=== PATIENT | female | born 1995 | race Caucasian/White ===

== ENCOUNTER 2023-01-29 09:25 | Emergency (ER) | payer OTHER, MEDICAID, SELFPAY ==
[2023-01-29 09:25] VITALS: BP 108/66; PULSE 68; RESP 18; TEMP 36.8; O2SAT 100; BMI 28.3
--- NOTE | 2023-01-29 09:28 | EXP.UTC ---
Discharge Plan Disposition Patient Disposition: Home, Self-Care Condition: Good Prescriptions Prescriptions: New phenazopyridine [Pyridium] 200 mg tablet 200 mg PO Q8H 2 Days Qty: 6 0RF sulfamethoxazole-trimethoprim [Bactrim DS] 800-160 mg Tablet 1 tab PO BID Qty: 14 0RF ondansetron 4 mg Tablet,Disintegrating 4 mg PO Q8H PRN (Reason: Nausea) Qty: 12 0RF Referrals Follow up/Referrals: Modesta Reddy MD [Primary Care Provider] - See instructions Activity Restrictions/Add. Instructions Additional Instructions/Restrictions: Drink plenty of fluids. Take tylenol or ibuprofen for pain or fever. Take the medications as directed. Follow up with your regular doctor. GO TO THE ER FOR ANY WORSENING SYMPTOMS The pyridium will make your urine turn orange, this is an expected side effect. It will stain your clothes if it comes into contact with them. We will culture the urine. That will tell what bacteria is causing your infection and which antibiotics will treat it best. Sometimes the first antibiotic we prescribe turns out to not work against different bacteria. So, make sure you follow up within 3 days if you are not getting better. Clinical Impressions Clinical Impression: UTI (urinary tract infection) Instructions Patient Instructions: DI for Urinary Tract Infection (UTI), Phenazopyridine Discharge ED Provider: Danilo Anderson [facility] General Stated complaint: burn sensation when urinates Time Seen by Provider: 01/29/23 09:28 History of Present Illness Provider Complaint: She states that for the past 2 days she has had low back pain, dysuria, and urinary frequency. Related Data Previous Rx's Medication Instructions Recorded ondansetron 4 mg disintegrating 4 mg PO Q8H PRN Nausea #12 tabs 01/29/23 tablet phenazopyridine 200 mg tablet 200 mg PO Q8H 2 days #6 tabs 01/29/23 (Pyridium) sulfamethoxazole 800 1 tab PO BID #14 tabs 01/29/23 mg-trimethoprim 160 mg tablet (Bactrim DS) Allergies Allergy/AdvReac Type Severity Reaction Status Date / Time No Known Allergies Allergy Verified 01/29/23 09:43 [facility] Disclaimer: The information contained in this section may have been updated after the patient was seen, as this information can be updated by other users. Social History Smoking Status: Never smoker alcohol intake: never current occupational status: employed Travel in the last 8 weeks: None ROS Obtained: Yes All systems reviewed & no additional complaints except as documented Constitutional Constitutional: Reports system reviewed and no additional complaints, except as documented, Denies chills and Denies fever(s) Eyes Eyes: Denies eye discharge ENT Ears, Nose, Mouth, and Throat: Denies dysphagia, Denies sore throat and Denies throat swelling Cardiovascular Cardiovascular: Denies chest pain and Denies dyspnea Respiratory Respiratory: Denies chest congestion, Denies cough and Denies dyspnea Gastrointestinal Gastrointestingal: Denies abdominal pain, constipation, diarrhea, dysphagia, nausea or vomiting Genitourinary Female Genitourinary: Reports as per HPI, Reports dysuria, Reports urinary frequency, Denies urinary incontinence, Reports urinary hesitancy and Reports urinary urgency Musculoskeletal Musculoskeletal: Denies arthralgias and Reports back pain Integumentary/Breasts Skin/Breast: Denies rash Neurologic Neurologic: Denies paresthesias Allergic/Immunologic Allergic/Immunologic: Denies throat swelling Physical Exam General General appearance: alert and in no apparent distress Head Head exam: atraumatic and normocephalic Eye Eye exam: Present normal appearance, PERRL and EOMI ENT ENT exam: Present normal exam, mucous membranes moist, TM's normal bilaterally and normal external ear exam Neck Neck exam: Present normal inspection, full ROM and trachea midline; Absent tenderness, meningismus o
[2023-01-29 10:09] VITALS: BP 108/66; PULSE 68; RESP 18; TEMP 36.8; O2SAT 100
[2023-01-29 11:10] LABS: Appearance,Urine CLEAR (Clear); Blood, Urine Negative (Negative); Color,Urine ORANGE (Yellow); Glucose,Urine (UA) TRACE (Negative); Ketones,Urine Negative (Negative); Leukocyte Esterase,Urine TRACE (Negative); Microscopic, Urine URINE MICROSCOPIC (MICROSCOPIC); Nitrate,Urine POSITIVE (Negative); Protein,Urine 1+ (Negative)
[2023-01-29 11:15] LABS: Bilirubin,Urine 1+ (Negative)
[2023-01-29 11:27] LABS: RBC,Urine Occasional #/hpf (0-3)
[2023-01-29 11:28] LABS: Bacteria,Urine 1+ /lpf
== END 2023-01-29 10:10 | disposition home or self-care (01) ==
PROVIDERS: Emergency Provider Nurse Practitioner Family; PCP Family Medicine
DX: N39.0 Urinary tract infection, site not specified (principal); M54.59 Other low back pain; B96.29 Other Escherichia coli [E. coli] as the cause of diseases classified elsewhere
CPT/HCPCS: 81001; 87086; 87088; 87186; 99204; 99212; G0463

== ENCOUNTER 2023-03-19 10:53 | Emergency (ER) | payer OTHER, MEDICAID, SELFPAY ==
[2023-03-19 10:54] VITALS: BP 112/78; PULSE 75; RESP 19; TEMP 36.6; O2SAT 100; BMI 26.2
--- NOTE | 2023-03-19 11:12 | EXP.UTC ---
Discharge Plan Disposition Patient Disposition: Home, Self-Care Condition: Good Prescriptions Prescriptions: New cephalexin [cephalexin] 500 mg tablet 500 mg PO BID 7 Days Qty: 14 0RF No Action phenazopyridine [Pyridium] 200 mg tablet 200 mg PO Q8H 2 Days Qty: 6 0RF sulfamethoxazole-trimethoprim [Bactrim DS] 800-160 mg Tablet 1 tab PO BID Qty: 14 0RF ondansetron 4 mg Tablet,Disintegrating 4 mg PO Q8H PRN (Reason: Nausea) Qty: 12 0RF Referrals Follow up/Referrals: Provider,Referral, MD [Primary Care Provider] - See instructions Activity Restrictions/Add. Instructions Additional Instructions/Restrictions: Increase fluids, water and not soda or tea. Can drink cranberry juice or cranberry extract. Wipe front to back Wear cotton underwear Empty bladder after intercourse Start antibiotics immediately and make sure you take the full course although you may start to see improvement over the next 48 hours. You can eat yogurt or take probiotics to decrease diarrhea or yeast infection caused by the antibiotic Be sure to follow-up anytime for new or worsening symptoms in 48 hours for wound urine culture results be sure to let you PCP no recent urine for culture so they can request records and ensure that you have appropriate antibiotic if you are not getting better or getting worse. If symptoms worsen or do not improve return or be seen in the ER. Follow-up with primary care this week. Clinical Impressions Clinical Impression: UTI (urinary tract infection) Qualifiers: Urinary tract infection type: acute cystitis Hematuria presence: with hematuria Qualified Code(s): N30.01 - Acute cystitis with hematuria Instructions Patient Instructions: DI for Urinary Tract Infection (UTI) Discharge ED Provider: Keesha ([facility] [facility] HPI General Stated complaint: possible UTI Mode of Arrival: Ambulatory Source of Information: Patient Limitations: No Limitations Time Seen by Provider: 03/19/23 11:13 Description of Symptoms (Recalled from Triage Doc. by RN): Patient reports uti symptoms. Complaint of frequent urination, dark urine and buring with urination since this morning. HEENT Symptoms (Recalled from RN notes): No Resp Symptoms (Recalled from RN notes): No Skin Symptoms (Recalled from RN notes): No MS Symptoms (Recalled from RN notes): No Functional Status (Recalled from RN notes): wnl History of Present Illness Provider Complaint: 27 yr old female presents with c/o frequent urination, dark urine and burning with urination since this morning. Related Data Previous Rx's Medication Instructions Recorded ondansetron 4 mg disintegrating 4 mg PO Q8H PRN Nausea #12 tabs 01/29/23 tablet phenazopyridine 200 mg tablet 200 mg PO Q8H 2 days #6 tabs 01/29/23 (Pyridium) sulfamethoxazole 800 1 tab PO BID #14 tabs 01/29/23 mg-trimethoprim 160 mg tablet (Bactrim DS) cephalexin 500 mg tablet 500 mg PO BID 7 days #14 tabs 03/19/23 Allergies Allergy/AdvReac Type Severity Reaction Status Date / Time No Known Allergies Allergy Verified 01/29/23 09:43 Worker's Comp Is this a Worker's Comp case?: No [facility]SH [facility] Disclaimer: The information contained in this section may have been updated after the patient was seen, as this information can be updated by other users. Social History , [employer]) Smoking Status: Never smoker alcohol intake: never current occupational status: employed Travel in the last 8 weeks: None ROS Obtained: Yes All systems reviewed & no additional complaints except as documented Constitutional Constitutional: Reports system reviewed and no additional complaints, except as documented Eyes Eyes: Reports system reviewed and no additional complaints, except as documented ENT Ears, Nose, Mouth, and Throat: Reports system reviewed and no additional complaints, except as documented Cardiovascular Cardiovascular: Reports system reviewed
[2023-03-19 11:13] LABS: Microscopic, Urine URINE MICROSCOPIC (MICROSCOPIC)
[2023-03-19 11:21] LABS: Appearance,Urine CLEAR (Clear); Bilirubin,Urine Negative (Negative); Blood, Urine 2+ (Negative); Color,Urine YELLOW (Yellow); Glucose,Urine (UA) Negative (Negative); Ketones,Urine Negative (Negative); Leukocyte Esterase,Urine 3+ (Negative); Nitrate,Urine POSITIVE (Negative); PH,Urine 7.5 (5.0-8.5); Protein,Urine TRACE (Negative); Specific Gravity, Urine 1.015 (1.005-1.030); Urobilinogen,Urine 0.2 EU/dl (0.2)
[2023-03-19 12:02] VITALS: BP 112/78; PULSE 75; RESP 19; TEMP 36.6; O2SAT 100
[2023-03-19 12:26] LABS: Bacteria,Urine Trace /lpf
== END 2023-03-19 12:02 | disposition home or self-care (01) ==
PROVIDERS: Emergency Provider Nurse Practitioner Family
DX: N39.0 Urinary tract infection, site not specified (principal); R31.9 Hematuria, unspecified
CPT/HCPCS: 81001; 87086; 87088; 87186; 99212; 99214; G0463

== ENCOUNTER 2024-04-24 10:48 | Outpatient (CLI) | payer MEDICAID, SELFPAY | END 2024-04-24 23:59 | disposition home or self-care (01) | LOC: LAB.DROPOF 04-25 10:48 | PROVIDERS: PCP Student in an Organized Health Care Education/Training Program; Visit Provider Student in an Organized Health Care Education/Training Program | DX: R39.9 Unspecified symptoms and signs involving the genitourinary system (principal) | CPT/HCPCS: 87086; 87088; 87186 ==

== ENCOUNTER 2024-09-21 11:23 | Outpatient (CLI) | payer MEDICAID, SELFPAY | END 2024-09-21 23:59 | disposition home or self-care (01) | LOC: LAB.DROPOF 09-24 11:29 | PROVIDERS: PCP Pediatrics; Visit Provider Student in an Organized Health Care Education/Training Program | DX: R30.0 Dysuria (principal) | CPT/HCPCS: 87086; 87088; 87186 ==

== ENCOUNTER 2025-03-28 14:57 | Emergency (ER) | payer MEDICAID, SELFPAY ==
--- OUTSIDE RECORDS SUMMARY | 2025-02-05 07:56 | XMS_ITS | Encounter Summary ---
[facility] Organization [facility] Address [address] [place] [address] Care Team Providers Care Gauge And Weigh Machine Adjuster Name Role Phone Opal Stewart MD Primary Care Provider [phone] Encounter Details Date Type Department Care Team (Latest Contact Info) Description 02/05/2025 7:56 AM EDT - 02/05/2025 11:59 PM EDT Hospital Encounter [facility] OUTPATIENT PHYSICAL THERAPY [address] [place] [address] Fatoumata Philippe, PT Dyspareunia, female (Primary Dx) Discharge Disposition: Home or Self Care Social History Tobacco Use Types Packs/Day Years Used Date Smoking Tobacco: Never Smokeless Tobacco: Never Alcohol Use Standard Drinks/Week Comments No 0 (1 standard drink = 0.6 oz pur e alcohol) AUDIT-C Answer Date Recorded Q1: How often do you have a drink containing alcohol? Never 09/19/2021 Q2: How many drinks containi ng alcohol do you have on a typical day when you are drinking? Patient does not drink Q3: How often do you have si x or more drinks on one occasion? Never 09/19/2021 PHQ-2 Answer Date Recorded PHQ-2 Score 0 05/14/2018 [place] Depression Scale Answer Date Recorded Retired [place] Depression Score 6 11/04/2021 Retired EPD Scale: Thought of Harming Self Unrec ognized value 11/04/2021 Comments Unknown Sex and Gender Information Value Date Recorded Sex Assigned at Female 04/06/2020 9:44 PM EDT Legal Sex Female 11:12 AM EDT Gender Identity Female 04/06/2020 9:44 PM EDT Sexual Orientation Straight 04/06/2020 9: 44 PM EDT Occupation Industry Job Start Date Job End Date Student Not on file Not on file Not on file documented as of this encounter Progress Notes * Fatoumata Philippe, PT - 02/05/2025 8:00 AM EDT PT Progress Note [facility] Patient: Yolette Parks : 1995 Diagnosis/ICD-10 Code: ICD-10-CM ICD-9-CM 1. Dyspareunia, female N94.10 625.0 Referring practitioner: Opal Stewart MD Today's Date: 02/05/2025 Subjective: Patient reports: pain has shifted to L and more midline, onto blue dilator - still having some pain, will likely remain this week Pain: 0 Clinical Progress: improved Home Program Compliance: Yes Treatment has included: therapeutic exercise, neuromuscular re-education, manual therapy, and therapeutic activity Subjective See Exercise, Manual, and Modality Logs for complete treatment. Functional Outcome Measure: APFQ Bladder 245 Bowel 134 Prolapse 0/15 Sexual 01/21 Verbal consent obtained for internal pelvic exam/treatment with declined need for second person in room. Pt tolerated manual treatment with minimal to no discomfort that decreased with MFR and TPR. Pt is compliant with HEP and stretching was reviewed today. Will continue manual and progress as toleratedto decrease symptoms. Pain Only minimal pain w intercourse, feels like symptoms have shifted to the L Bladder function: No bladder issues noted Bowel function: No bowel issues noted Sexual activity Bloating following intercourse has been fine Deeper penetration has improved pain / No pain following dilator or sex now No insertional pain Transfers [id number] - PT Therapeutic Activity Minutes: 10 Objective Appropriate kegel and lengthening Cervix seems to slightly descended and deviated towards the L With kegel, cervix migrated slightly upwards in canal No points of tenderness w internal exam today No restrictions around apex of canal compared to previous sessions Assessment & Plan Assessment Assessment details: 30 day reassessment complete w goals updated as appropriate. Pt remains warranted for continued skilled PT to address remaining pain w intercourse. Progressed dilator training. Recommend implementing prolapse related care to address slight descent of cervix upon next visit (follow up in about 2 weeks). Plan Plan details: POP exercises Progress toward previous goals: Partially Met Recommendations: Continue as planned Timeframe: 3 months Therapy Charges for Today Code Description Service Date Service Provider Modifiers Qty [id number] HC PT THERAPEUTIC ACT EA 15 MIN 02/05/2025 Fatoumata Philippe, PT GP 1 [id number] HC PT MANUAL THERAPY EA 15 MIN 02/05/2025 Fatoumata Philippe, PT GP 1 PT Signature: Fatoumata Philippe PT, DPT [place] License #: [id number] Based upon review of the patient's progress and continued therapy plan, it is my medical opinion that Yolette Parks should continue physical therapy treatment at [facility] OP PT. Signature: Opal Stewart MD documented in this encounter Plan of Treatment Upcoming Encounters Date Type Department Care Team (Late st Contact Info) Description 11/27/2025 1:00 PM EDT Office Visit [facility] OBGYN [address] [place] [address] Opal Stewart MD [address] [place] [address] [place] [phone] documented as of this encounter Visit Diagnoses Diagnosis Dyspareunia, female- Primary documented in this encounter Care Teams Gauge And Weigh Machine Adjuster Relationship Specialty Start Date End Date Opal Stewart MD [address] [place] [address] PCP - General Obstetrics and Gynecology 11/14/23 documented as of this encounter
[2025-03-28 15:17] VITALS: BP 137/80; PULSE 80; RESP 20; TEMP 36.7; O2SAT 98; BMI 23.6
[2025-03-28] MEDS: LIDOCAINE 1% W/EPI 1:100,000 20ML VIAL 20 ML SQ (15:23)
--- NOTE | 2025-03-28 15:44 | ED_ITS ---
<Statement entered by Hernan Ruffin MD - 03/29/25 02:20> I was consulted by the [facility], and we discussed the complexity of the problems being addressed. I approve the treatment and management plan for this patient's care in the emergency department, thus performing a substantive portion of the medical decision making. Hernan Ruffin MD Discharge Plan Disposition Patient Disposition: Home, Self-Care Prescriptions Prescriptions: No Action nitrofurantoin monohyd/m-cryst 100 mg capsule 100 mg PO Q12H 7 Days Qty: 14 0RF Rx Instructions: must administer with a meal/food Referrals Follow up/Referrals: Elver Marcos MD [Primary Care Provider, Medical] - See instructions Activity Restrictions/Add. Instructions Additional Instructions/Restrictions: Have sutures removed in 10 days. Keep clean and dry. If any signs or symptoms of infection please return to your PCP. Clinical Impressions Clinical Impression: Laceration Instructions Patient Instructions: DI for Laceration Repair Print Language Print Language: Greek Discharge ED Provider: Hernan Ruffin General Adult HPI General Chief complaint: Wound/Laceration Stated complaint: AO 03/28/25 1400, cut finger on right hand Time Seen by Provider: 03/28/25 15:03 Mode of Arrival: Ambulatory Source of Information: Patient Description of Symptoms (Recalled from ER Triage Doc. by RN): pt was cooking dinner at home and finger on new slicer, tetnus is up to date, denies any other health problems, edges are approxiamate History of Present Illness HPI narrative: 29-year-old female presents to the ED today for complaint of laceration to right middle finger. She was cutting food and sliced off the part of the middle finger. She says she is up-to-date on tetanus. She is controlled the bleeding. She has no other complaints Related Data Previous Rx's ?Medication ?Instructions ?Recorded nitrofurantoin 100 mg PO Q12H 7 days #14 ca ps 09/21/24 monohydrate/macrocrystals 100 mg capsule Allergies Allergy/AdvReac Type Severity Reaction Status Date / Time No Known Allergies Allergy Verified 03/28/25 15:20 PFS PFS Disclaimer: The information contained in this section may have been updated after the patient was seen, as this information can be updated by other users. Social History Smoking Status: Never smoker alcohol intake: never current occupational status: employed Travel in the last 8 weeks?: None Have you lived/traveled outside US in past 30 days?: No Contact w/someone who lives/traveled outside US past 30 days?: No Exposure to someone with infectious disease in past 14 days?: No Do you have a fever (greater than 100.4 F or 38 C)?: No Have you tested positive for COVID-19?: No Exposed to someone with COVID-19 in past 14 days?: No Do you have a sore throat?: No Do you have a cough?: No Do you have any weakness?: No Do you have any diarrhea?: No Are you experiencing any unusual bleeding?: No Do you have any muscle aches/pain?: No Do you have any abdominal pain?: No Are you experiencing loss of taste or smell?: No Other Medical History Have you received the Pneumonia Vaccine: No ROS Obtained: Yes Systems reviewed as appropriate & no additional complaints except as documented Constitutional Constitutional: Reports as per HPI Physical Exam General General appearance: alert and in no apparent distress Head Head exam: normocephalic Eye Eye exam: Present PERRL and EOMI ENT ENT exam: Present normal oropharynx and mucous membranes moist Neck Neck exam: Present full ROM and trachea midline Respiratory Respiratory exam: Present normal lung sounds bilaterally Cardiovascular Cardiovascular exam: Present regular rate and normal rhythm Extremities Exam Extremities exam: Present full ROM and normal capillary refill Neurological Exam Neurological exam: Present alert and oriented X3 Skin Skin exam: Present warm, dry and other (Small laceration to right middle finger, this slicer took a small chunk out of her finger with flap) Medical Decision Making Medical Records Screening: Per USPSTF and CDC recommendations, given the prevalence of disease in our region, it is our hospital?s policy to screen for HIV and viral Hepatitis for all patients aged 18 and over and those with ongoing risk factors. Kevin Inquiry Pt receiving controlled substance: No Kevin was queried for this patient: No Vital Signs: 03/28/25 15:17 03/28/25 16:02 Temperature 98.1 F 98.0 F Temperature Source Oral Oral Pulse Rate 76 Pulse Rate [Left Radial] 80 Respiratory Rate 20 18 Blood Pressure 126/78 Blood Pressure [Right Arm] 137/80 Blood Pressure Mean [Right Arm] 99 Blood Pressure Source Automatic Cuff Blood Pressure Position Sitting 02 Sat by Pulse Oximetry 98 Oxygen Delivery Method Room Air Room Air Orders (Tests/Meds): ED MEDICATIONS Discontinued Medications Generic Name Dose Route Start Last Admin Trade Name Carisa PRN Reason Stop Dose Admin Lidocaine/Epinephrine 20 ml 03/28/25 15:21 03/28/25 15:23 Lidocaine 1% W/Epi 1:100,000 20ml Vial SQ 03/28/25 15:22 20 ml ONCE ONE Administration Medical Decision Narrative: 29-year-old female presents to the ED for complaint of laceration to right middle finger. She is up-to-date on tetanus. She sliced a piece of her middle finger, flap is apparent. Tried to keep the flap attached with 2 sutures. It was difficult to keep the flap attached. Patient given instructions to care for this wound. Patient needs to have sutures removed in 10 days. Patient safe for discharge home. Procedures Laceration Laceration 1: Site: finger (Right middle finger) Side (If applicable): right Size (cm): 2 Description: flap Depth: simple, single layer Local Anesthetic: lidocaine 1% Amount of anesthesia used (mL): 3 Skin layer closed with: nylon Size (cm): 4-0 (2) Number of sutures: 2 Technique: simple, interrupted Critical Care Critical Care Time Critical Care Time: No
--- OUTSIDE RECORDS SUMMARY | 2025-03-28 15:44 | XMS_ITS | Encounter Summary ---
[facility] Address [address] [place] [address] Care Team Providers Care Heel Stainer Name Role Phone Opal Stewart MD Primary Care Provider [phone] Encounter Details Date Type Department Care Team (Latest Contact Info) Description 02/05/2025 Travel Social History Tobacco Use Types Packs/Day Years [...] Answer Date Recorded PHQ-2 Score 0 05/14/2018 [place] Depression Scale Answer Date Recorded Retired [place] Depression Score 6 11/04/2021 Retired EPD Scale: [...] on file documented as of this encounter Plan of Treatment Upcoming Encounters Date Type Department Care Team (Late st Contact Info) Description 11/27/2025 1:00 PM EDT Office Visit [facility] OBGYN [address] [place] [address] Opal Stewart MD [address] [facility] [address] [place] [phone] documented as of this encounter Visit Diagnoses Not on filedocumented in this encounter Care Teams Heel Stainer Relationship Specialty Start Date End Date Opal Stewart MD [address] [place] [address] PCP - General Obstetrics and Gynecology 11/14/23 documented as of this encounter
--- OUTSIDE RECORDS SUMMARY | 2025-03-28 15:45 | XMS_ITS | Clinical Summary ---
Author Organization [facility] Address [address] [place] [address] Care Team Providers Care Manufacturing Inspector Name Role Phone Opal Stewart MD Primary Care Provider Allergies No known active allergies Medications No known medications Active Problems No known active problems Resolved Problems Problem Noted Date Diagnosed Date Resolved Date Normal labor 09/19/2021 11/04/2021 History of gestat ional hypertension 05/20/2021 11/04/2021 Overview (08/12/2021): 28 wk 24h urine 255mg 03/04/2021 11/04/2021 Overview (08/12/2021): Prev term 6#6oz, elevated BPs after delivery, no mag. Start baby asa 12 wks. EFW 32 wks 59%ile Normal labor 04/29/2020 06/11/2020 Encounters Date Type Department Care Team Description 02/05/2025 7:56 AM EDT - 02/05/2025 11:59 PM EDT Hospital Encounter [facility] [address] [place] [id number] Fatoumata Philippe, PT Dyspareunia, female (Primary Dx) Discharge Disposition: Home or Self Care 02/05/2025 Travel 01/15/2025 8:38 AM EDT - 01/15/2025 11:59 PM EDT Hospital Encounter [facility] [address] [place] [address] Fatoumata Philippe, PT Dyspareunia, female (Primary Dx) Discharge Disposition: Home or Self Care 01/15/2025 Travel 01/02/2025 1:00 PM EDT - 01/02/2025 11:59 PM EDT Hospital Encounter [facility] [address] [place] [address] Fatoumata Philippe, PT Dyspareunia, female (Primary Dx) Discharge Disposition: Home or Self Care 01/02/2025 Travel from Last 3 Months Immunizations Immunization Administration Dates Next Due DTaP 10/23/2001, 9,04/15/1998,02/25,1997 HPV Quadrivalent 01/29/2009,03/29/2008, 8 Hep A, 2 Dose 02/17/2018 Hepatitis A 09/06/2018 Hepatitis B Adult/Adolescent IM 04/15/1998,12/24,1997 HiB 01/14/1999, 8,02/25/1998,12/24 IPV 10/23/2001, 9,02/25/1998,12/24 MMR 10/23/2001,01/14/1999 Meningococcal Conjugate 01/31/2012 Pneumococcal Conjugate 13-Va lent (PCV13) 10/21/2000 Tdap 01/29/2009 Varicella 01/29/2011,10/21/2000 Family History Medical History Relation Name Comments Diabetes Maternal Grandfather Alex barahona Hyperlipidemia Maternal Grandfather Alex barahona Breast cancer Maternal Grandmother Wendie barahona Cancer Maternal Grandmother Wendie barahona Hyperlipidemia Maternal Grandmother Wendie barahona Hypertension Mother Elly andrea Breast cancer Other Family History Relation Name Status Comments Maternal Grandfather Alex barahona Maternal Grandmother Wendie barahona Mother Elly andrea Other Family History Social History Tobacco Use Types Packs/Day Years [...] Answer Date Recorded PHQ-2 Score 0 05/14/2018 [employer] Depression Scale Answer Date Recorded Retired [employer] Depression Score 6 11/04/2021 Retired EPD Scale: [...] file Not on file Not on file Last Filed Vital Signs Vital Sign Reading Time Taken Comments Blood Pressure 112/78 11/21/2024 1:14 PM EDT Pulse 83 09/21/2021 8:00 AM EDT Temperature 36.8 C (98.3 F) 09/21/2021 8:00 AM EDT Respiratory Rate 16 09/21/2021 8:00 AM EDT Oxygen Saturation 98% 09/19/2021 1:06 AM EDT Inhaled Oxygen Concentration - - Weight 56.7 kg (125 lb) 11/21/2024 1:14 PM EDT Height 156.2 cm (5' 1.5 ) 11/21/2024 1:14 PM EDT Body Mass Index 23.24 11/21/2024 1:14 PM EDT Plan of Treatment Upcoming Encounters Date Type Department Care Team (Late st Contact Info) Description 11/27/2025 1:00 PM EDT Office Visit [facility] [address] [place] [address] Opal Stewart MD [address] [address] Health Maintenance Due Date Last Done Comments TDAP/TD VACCINES (2 - Td or Tdap) 01/29/2019 009 ANNUAL PHYSICAL 02/24/2020 02/23/2019 INFLUENZA VACCINE 02/01/2025 PT PLAN OF CARE 04/02/2025 01/02/2025 Annual Gynecologic Pelvic an d Breast Exam 11/22/2025 11/21/2024 PAP SMEAR 11/15/2026 11/16/2023, 11/01, 11/04/2021, Additional history exists Pneumococcal Vaccine 0-49 Completed 10/21/2000 HEPATITIS C SCREENING Completed 03/04/2021, 020 CHLAMYDIA SCREENING Discontinued 11/16/2023, 11/10/2022, 03/04/2021, Additional history exists Procedures Procedure Name Priority Date/Time Associated Diagnosis Comments LIQUID-BASED PAP SMEAR WITH HPV GENOTYPING IF ASCUS, [facility] (FRANCINE,COR,MAD) Routine 11/16/2023 10:24 AM EDT Women's annual routine gynecological examination OB PANEL WITH HIV AND RPR Routine 03/04/2021 12:00 AM EDT 9 weeks gestation of from Last 3 Months or Most Recently Relevant to Health Maintenance Results * LIQUID-BASED PAP SMEAR WITH HPV GENOTYPING IF ASCUS (FRANCINE,COR,MAD) (11/16/2023 10:24 AM EDT) Pathologist [facility] Reference Lab Report [facility] [address] [place] [address] or [phone] Finn Moe M.D., [place] PATIENT NAME LABORATORY NO. 65REANNA BAIG [id number] AGE SEX SSN CLIENT REF # [facility] ([place]) 26 1995 F [id number] Lisa RUELAS REQUESTING Bryanna [place] [address] OPAL STEWART DATE COLLECTED DATE RECEIVED DATE REPORTED 11/16/2023 11/16/2023 11/21/2023 ThinPrep Pap with Cytyc Imaging DIAGNOSIS: Negative for intraepithelial lesion or malignancy Multiple factors can influence accuracy of Pap tests; therefore, screening at regular intervals is necessary for early cancer detection. COMMENT: Benign cellular changes associated with inflammation are present. SPECIMEN ADEQUACY: SATISFACTORY FOR EVALUATION Transformation zone is present. SOURCE OF SPECIMEN: CERVICAL/ENDOCERV ICAL SLIDES: 1 CLINICAL HISTORY: Women's annual routine gynecological examination LINTER TENDER: ABIMBOLA BLAKELY (ASCP) CPT CODES: 83423 11/21/2023 6:41 AM EDT [facility] ThinPrep Vial Cervix uteri structure / Unknown Collection / Unknown 11/16/2023 10:24 AM EDT 11/16/2023 10:24 AM EDT us Opal Stewart MD PATHOLOGY/CYTOLOGY ORDERABLES Fi nal Result [facility]
[address] [place] [address], * (ABNORMAL) OB Panel With HIV (03/04/2021 12:00 AM EDT) Hepatitis B Surface Ag Negative Negative [facility] Hep C Virus Ab <0.1 0.0 - 0.9 s/co ratio [facility] Comment: Negative: < 0.8 Indeterminate: 0.8 - 0.9 Positive: > 0.9 The CDC recommends that a positive HCV antibody result be followed up with a HCV Nucleic Acid Amplification test (696700). RPR Non Reactive Non Reactive [facility] Rubella Antibodies, IgG 1.57 Immune >0.99 index [facility] Comment: Non-immune <0.90 Equivocal 0.90 - 0.99 Immune >0.99 ABO Type A [facility] Rh Factor Positive [facility] Comment: Please note: Prior records for this patient's ABO / Rh type are not available for additional verification. Antibody Screen Negative Negative [facility] HIV Screen 4th Gen w/RFX (Reference) Non Reactive Non Reactive [facility] WBC 12.3(H) 3.4 - 10.8 x10E3/uL [facility] RBC 3.96 3.77 - 5.28 x10E6/uL [facility] Hemoglobin 12.0 11.1 - 15.9 g/dL [facility] Hematocrit 36.2 34.0 - 46.6 % [facility] MCV 91 79 - 97 fL [facility] MCH 30.3 26.6 - 33.0 pg [facility] MCHC 33.1 31.5 - 35.7 g/dL [facility] RDW 14.6 11.7 - 15.4 % [facility] Platelets 314 150 - 450 x10E3/uL [facility] Neutrophil Rel % 82 Not Estab. % [facility] Lymphocyte Rel % 11 Not Estab. % [facility] Monocyte Rel % 5 Not Estab. % [facility] Eosinophil Rel % 2 Not Estab. % [facility] Basophil Rel % 0 Not Estab. % [facility] Neutrophils Absolute 9.9(H) 1.4 - 7.0 x10E3/uL [facility] Lymphocytes Absolute 1.4 0.7 - 3.1 x10E3/uL [facility] Monocytes Absolute 0.6 0.1 - 0.9 x10E3/uL [facility] Eosinophils Absolute 0.3 0.0 - 0.4 x10E3/uL [facility] Basophils Absolute 0.0 0.0 - 0.2 x10E3/uL [facility] Immature Granulocyte Rel % 0 Not Estab. % [facility] Immature Grans Absolute 0.0 0.0 - 0.1 x10E3/uL [facility] Blood 03/04/2021 03/04/2021 Narrative [facility] ([facility]) - 03/06/2021 7:07 PM EDT Performed at: - [facility] [address] [place] [address], [place], [place] [id number] Triage Nurse: Harjit [place] PhD, Phone: [phone] us Opal Stewart MD LAB BLOOD ORDERABLES Final Resul t [facility] (AMBULATORY) [address] [place] [address], [facility] [address] [place] [address], from Last 3 Months or Most Recently Relevant to Health Maintenance Insurance [facility] [id number] [address] Advance Directives * CPR (Attempt to Resuscitate) (Latest Code Status on File) Date Activated Date Inactivated Comments 09/19/2021 2:52 PM 09/21/2021 2:07 PM Question Answer Comments Code Status (Patient has no pulse and is not breathing): CPR (Attempt to Resuscitate) Medical Interventions (Patie nt has pulse or is breathing): Full * CPR (Attempt to Resuscitate) Date Activated Date Inactivated Comments 04/29/2020 9:01 PM 05/01/2020 2:39 PM Question Answer Comments Code Status (Patient has no pulse and is not breathing): CPR (Attempt to Resuscitate) Medical Interventions (Patie nt has pulse or is breathing): Full * CPR (Attempt to Resuscitate) Date Activated Date Inactivated Comments 04/29/2020 4:22 AM 04/29/2020 9:01 PM Question Answer Comments Code Status (Patient has no pulse and is not breathing): CPR (Attempt to Resuscitate) Medical Interventions (Patie nt has pulse or is breathing): Full Care Teams Manufacturing Inspector Relationship Specialty Start Date End Date Opal Stewart MD [facility] [address] PCP - General Obstetrics and Gynecology 11/14/23
[2025-03-28 16:02] VITALS: BP 126/78; PULSE 76; RESP 18; TEMP 36.7; O2SAT 100
== END 2025-03-28 16:04 | disposition home or self-care (01) ==
PROVIDERS: Emergency Provider Student in an Organized Health Care Education/Training Program; PCP Pediatrics
DX: S61.212A Laceration without foreign body of right middle finger without damage to nail, initial encounter (principal); W26.8XXA Contact with other sharp object(s), not elsewhere classified, initial encounter
CPT/HCPCS: 12001; 99282; J2004

== ENCOUNTER 2025-06-22 08:14 | Outpatient (CLI) | payer MEDICAID, SELFPAY ==
--- OUTSIDE RECORDS SUMMARY | 2025-06-24 08:19 | XMS_ITS | Clinical Summary ---
Author Organization [facility] Address [address] [place] [address] Care Team Providers Care Echocardiograph Tech Name Role Phone Opal Stewart MD Primary [...] 32 wks 59%ile Normal labor 04/29/2020 06/11/2020 Immunizations Immunization Administration Dates Next Due DTaP [...] Maternal Grandmother Wendie barahona Hypertension Mother Elly wyatt Breast cancer Other Family History Relation Name Status Comments Maternal Grandfather Alex barahona Maternal Grandmother Wendie barahona Mother Elly wyatt Other Family History Social History Tobacco Use [...] Answer Date Recorded PHQ-2 Score 0 05/14/2018 [employer] Depression Scale Answer Date Recorded [employer] Depression Scale Total 6 11/04/2021 The thought of harming myself has occurred to me . Unrecognized value 11/04/2021 Comments Unknown Sex and Gender [...] Description 11/27/2025 1:00 PM EDT Office Visit [facility] [address] [place] [address] Opal Stewart MD [address] [facility] [address] [place], [place] [id number] Health Maintenance Due Date Last Done Comments [...] IF ASCUS (FRANCINE,COR,MAD) (11/16/2023 10:24 AM EDT) Reference Lab Report [facility] [address] [place] [address] or [phone] Finn Moe M.D., Dispatcher [place] PATIENT NAME LABORATORY NO. 65REANNA BAIG [id number] AGE SEX SSN CLIENT REF # [facility] ([place]) 26 1995 F [id number] [facility] ESTHER RUELAS REQUESTING Bryanna [place] [address] OPAL STEWART DATE COLLECTED DATE RECEIVED DATE [...] CLINICAL HISTORY: Women's annual routine gynecological examination [employer] ANALYST: ABIMBOLA BLAKELY (ASCP) CPT CODES: [id number] 11/21/2023 6:41 AM EDT [facility] ThinPrep Vial Cervix uteri structure / Unknown Collection / Unknown 11/16/2023 10:24 AM EDT 11/16/2023 10:24 AM EDT us Opal Stewart MD PATHOLOGY/CYTOLOGY ORDERABLES Fi nal Result [facility]
[address] [place] [address], * (ABNORMAL) OB Panel With HIV (03/04/2021 12:00 AM EDT) Hepatitis B Surface Ag Negative Negative [facility] Hep C Virus Ab <0.1 0.0 - 0.9 s/co ratio [facility] Comment: Negative: < 0.8 Indeterminate: 0.8 - 0.9 Positive: > 0.9 The CDC recommends that a positive HCV antibody result be followed up with a HCV Nucleic Acid Amplification test (337178). RPR Non Reactive Non Reactive [facility] [...] [facility] Blood 03/04/2021 03/04/2021 Narrative [facility] ([facility]) - 03/06/2021 7:07 PM EDT Performed at: - [facility] [address] [place] [id number] Manager Of Security: Harjit [place] PhD, Phone: [phone] us Opal Stewart MD LAB BLOOD ORDERABLES Final Resul t [facility] ([facility]) [address] [place] [address], [facility] [address] [place] [address], from Last 3 Months or Most Recently Relevant to Health Maintenance Insurance [facility] [place] [address] Advance Directives * CPR (Attempt to Resuscitate) [...] pulse or is breathing): Full Care Teams Echocardiograph Tech Relationship Specialty Start Date End Date Opal Stewart MD [address] [place] [id number] PCP - General Obstetrics and Gynecology 11/14/23
== END 2025-06-22 23:59 | disposition home or self-care (01) ==
LOC: LAB.DROPOF 06-24 08:15
PROVIDERS: PCP Pediatrics; Visit Provider Nurse Practitioner
DX: N39.0 Urinary tract infection, site not specified (principal)
CPT/HCPCS: 87086; 87088; 87186